=== PATIENT | male | born 1940 | race Caucasian/White ===

== ENCOUNTER 2020-02-05 08:03 | Outpatient (REF) | payer MEDICARE, OTHER, SELFPAY ==
--- NOTE | 2020-02-05 | XR_ITS ---
EXAMINATION: XR FOOT, LEFT CLINICAL INFORMATION: Pain of the first metatarsal joint. Rule out fracture/gout/arthritis. COMPARISON: None TECHNIQUE: AP, lateral, and oblique views of the left foot. FINDINGS: There is no fracture or dislocation. There is loss of the joint space at the first metatarsophalangeal joint with subchondral sclerosis and osteophyte formation. No osseous erosion. Mild narrowing with subchondral cyst formation at the second and third digit distal interphalangeal joints.. There is prominent soft tissue swelling of the forefoot. Vascular calcifications are present. Osseous spurring at the base of the fifth metatarsal. 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 Mild degenerative changes of the second and third distal interphalangeal joints.
[2020-02-05 11:58] LABS: Uric Acid 10.5 mg/dL (3.4-7.0)
[2020-02-05 12:12] LABS: Alanine Aminotransferase 20 U/L (0-40); Albumin Level 4.3 g/dL (3.5-5.0); Alkaline Phosphatase 73 U/L (39-117); Anion Gap 14 (12-20); Aspartate Amino Transferase 22 U/L (5-37); Bilirubin Total 1.3 mg/dL (0.0-1.0); Blood Urea Nitrogen 27 mg/dL (9-16); Calcium 9.1 mg/dL (8.4-10.2); Carbon Dioxide 26 mmol/L (22-29); Chloride 102 mmol/L (96-108); Cholesterol 150 mg/dL; Estimated Glomerular Filt Rate > 60; Glucose Fasting 139 mg/dL (60-99); HDL Cholesterol 52 mg/dL; LDL Cholesterol Calculated 76 mg/dl; Potassium 4.4 mmol/l (3.3-5.1); Sodium 138 mmol/L (135-145); Total Protein 7.7 g/dL (6.5-8.0); Triglycerides 111 mg/dL
[2020-02-05 12:20] LABS: Estimated Average Glucose 137 mg/dL; Hemoglobin A1c % 6.4 %
[2020-02-05 12:25] LABS: Erythrocyte Sedimentation Rate 23 MM/HR (0-15)
== END 2020-02-05 08:04 | disposition home or self-care (01) ==
LOC: HO.HMGCX 08:03
PROVIDERS: PCP Nurse Practitioner Family; Visit Provider Podiatrist
DX: M10.9 Gout, unspecified (principal); M19.90 Unspecified osteoarthritis, unspecified site; M77.42 Metatarsalgia, left foot; E11.9 Type 2 diabetes mellitus without complications
CPT/HCPCS: 36415; 73630; 80053; 80061; 83036; 84550; 85652

== ENCOUNTER 2020-02-08 08:02 | Outpatient (REF) | payer MEDICARE, OTHER, SELFPAY ==
[2020-02-08 11:37] LABS: Alanine Aminotransferase 22 U/L (0-40); Albumin Level 4.2 g/dL (3.5-5.0); Alkaline Phosphatase 73 U/L (39-117); Anion Gap 14 (12-20); Aspartate Amino Transferase 24 U/L (5-37); Bilirubin Total 0.9 mg/dL (0.0-1.0); Blood Urea Nitrogen 24 mg/dL (9-16); Calcium 9.4 mg/dL (8.4-10.2); Carbon Dioxide 27 mmol/L (22-29); Chloride 105 mmol/L (96-108); Cholesterol 139 mg/dL; Estimated Average Glucose 134 mg/dL; Estimated Glomerular Filt Rate > 60; Glucose Fasting 141 mg/dL (60-99); HDL Cholesterol 52 mg/dL; Hemoglobin A1c % 6.3 %; LDL Cholesterol Calculated 72 mg/dl; Potassium 4.5 mmol/l (3.3-5.1); Sodium 141 mmol/L (135-145); Total Protein 7.6 g/dL (6.5-8.0); Triglycerides 76 mg/dL
[2020-02-08 11:59] LABS: Thyroid Stimulating Hormone 1.25 mIU/mL (0.32-4.0)
[2020-02-08 12:05] LABS: Creatinine Urine 117.49 mg/dL; Microalbum/Creatinine Ratio Ur 103.8 ug/mg cr
== END 2020-02-08 08:03 | disposition home or self-care (01) ==
LOC: HO.HMGCLDS 08:02
PROVIDERS: PCP Nurse Practitioner Family; Visit Provider Internal Medicine Endocrinology, Diabetes & Metabolism
DX: E11.65 Type 2 diabetes mellitus with hyperglycemia (principal)
CPT/HCPCS: 80053; 80061; 82043; 83036; 84443

== ENCOUNTER 2020-12-01 07:48 | Outpatient (REF) | payer MEDICARE, OTHER, SELFPAY ==
--- NOTE | ~2020-12-01 | XR_ITS ---
EXAMINATION: XR CHEST CLINICAL INFORMATION: R19.7 - Diarrhea, unspecified COMPARISON: Chest radiographs 12/13/2018 TECHNIQUE: 2 views of the chest were obtained. FINDINGS: There has been prior median sternotomy with mediastinal clips and sternotomy wires. The heart is within normal size. The vascularity is normal. There is old scarring left lower zone similar to prior exam 2019. There is no vascular congestion or interval airspace consolidation or effusion. The posterior costophrenic sulci are well-defined. The hilar and mediastinal contours and bony structures are stable. No free air beneath the diaphragms. XR/XR chest 2V IMPRESSION: Postsurgical changes. Old scarring left lower zone. No acute intrathoracic disease.
[2020-12-01 11:35] LABS: Basophils Percent Auto 0.4 % (0-2); Eosinophils Absolute Auto 0.3 X10*3/uL (0.0-0.4); Hematocrit 40.7 % (42-52); Hemoglobin 13.4 g/dl (14.0-18.0); Imm Gran Abs Auto 0.03 X10*3/uL (0.00-0.03); Imm Gran Pct Auto 0.4 % (0.0-0.4); Lymphocytes Absolute Auto 1.2 X10*3/uL (1.2-4.9); Lymphocytes Percent Auto 15.1 % (20-40); MANUAL DIFF FLAG SCAN; Mean Corpuscular HGB Conc 32.9 g/dl (31.0-36.0); Mean Corpuscular Hemoglobin 33.1 pg (27.0-33.0); Mean Corpuscular Volume 100.5 fL (80-98); Mean Platelet Volume 9.8 fL (9.4-12.4); Monocytes Absolute Auto 1.6 X10*3/uL (0.1-1.2); Monocytes Percent Auto 19.6 % (2-11); Neutrophils Percent Auto 60.5 % (45-73); Platelet Count 226 X10*3/uL (160-400); Red Blood Count 4.05 X10*6/uL (4.60-5.80); Red Cell Distribution Width 12.3 % (11.0-16.0); SCAN SMEAR FLAG 1; White Blood Count 8.2 X10*3/uL (4.8-10.8)
[2020-12-01 11:55] LABS: Alanine Aminotransferase 31 U/L (0-40); Albumin Level 4.2 g/dL (3.5-5.0); Alkaline Phosphatase 105 U/L (39-117); Anion Gap 16 (12-20); Aspartate Amino Transferase 33 U/L (5-37); Bilirubin Total 1.3 mg/dL (0.0-1.0); Blood Urea Nitrogen 42 mg/dL (9-16); C Reactive Protein 4.16 mg/dL (< or = 0.50); Calcium 9.4 mg/dL (8.4-10.2); Carbon Dioxide 23 mmol/L (22-29); Chloride 104 mmol/L (96-108); Cholesterol 134 mg/dL; Estimated Glomerular Filt Rate 43; Glucose Fasting 120 mg/dL (60-99); HDL Cholesterol 41 mg/dL; LDL Cholesterol Calculated 76 mg/dl; Potassium 4.9 mmol/L (3.3-5.1); Sodium 138 mmol/L (135-145); Total Protein 7.9 g/dL (6.5-8.0); Triglycerides 85 mg/dL
[2020-12-01 11:58] LABS: Glucose Urine UA NEG (NEG); Leukocyte Esterase Urine NEG (NEG); Nitrite Urine NEG (NEG); PH 5.5 (5.0-8.0); Specific Gravity - Urine 1.025 (1.005-1.025); Urine Blood NEG (NEG); Urine Ketones NEG (NEG); Urine Protein TRACE MG/DL (NEG-TRACE)
[2020-12-01 12:04] LABS: Appearance Urine CLEAR; Color Urine YELLOW
[2020-12-01 12:06] LABS: HBsAGNum1 0.17 S/CO (0.00-0.99); HIV AB/AG Nonreactive (Nonreactive); Hepatitis B Core Antibody Nonreactive (Nonreactive); Hepatitis B Surface Antigen Negative (Negative); ~HepC Num1 0.09 S/CO (0.00-0.79); ~Hepatitis C Antibody Nonreactive (Nonreactive)
[2020-12-01 12:09] LABS: SLIDE REVIEW VERIFIED
[2020-12-01 12:17] LABS: Erythrocyte Sedimentation Rate 64 MM/HR (0-15); TSH reflex Free T4 1.01 uIU/mL (0.32-4.0)
[2020-12-01 12:24] LABS: HBS Num1 0.45 mIU/mL (0-7.99); ~Hepatitis B Surface Antibody NONREACTIVE (Nonreactive)
[2020-12-02 04:36] LABS: Hepatitis A Antibody IgM 0.47 Index (0-0.79); ~Hepatitis A Antibody IgM Nonreactive (Nonreactive)
[2020-12-02 05:35] LABS: CA-125 17 U/mL (<35)
== END 2020-12-01 07:49 | disposition home or self-care (01) ==
LOC: HO.HMGCX 07:48
PROVIDERS: PCP Nurse Practitioner Family; Visit Provider Nurse Practitioner Family
DX: R63.4 Abnormal weight loss (principal); R19.7 Diarrhea, unspecified; I10 Essential (primary) hypertension; Z12.5 Encounter for screening for malignant neoplasm of prostate
CPT/HCPCS: 36415; 71046; 80053; 80061; 81003; 84153; 84443; 85025; 85652; 86140; 86304; 86704; 86706; 86709; 86803; 87340; 87389

== ENCOUNTER 2020-12-06 09:33 | Outpatient (REF) | payer MEDICARE, OTHER, SELFPAY ==
[2020-12-06 11:34] LABS: Glucose Urine UA NEG (NEG); Leukocyte Esterase Urine NEG (NEG); Nitrite Urine NEG (NEG); PH 5.5 (5.0-8.0); Specific Gravity - Urine 1.025 (1.005-1.025); UACC Culture Trigger NO; Urine Blood NEG (NEG); Urine Ketones 5 MG/DL (NEG); Urine Protein 1+ MG/DL (NEG-TRACE)
[2020-12-06 11:37] LABS: Appearance Urine CLEAR; Color Urine YELLOW
[2020-12-06 11:46] LABS: RBC Urine 0 /HPF (0); Squamous Epithelial Cell Urine TRACE /LPF; WBC Urine 0 /HPF (0-4)
[2020-12-06 12:05] LABS: Alanine Aminotransferase 31 U/L (0-40); Alkaline Phosphatase 98 U/L (39-117); Anion Gap 18 (12-20); Aspartate Amino Transferase 32 U/L (5-37); Bilirubin Total 1.1 mg/dL (0.0-1.0); Blood Urea Nitrogen 33 mg/dL (9-16); Calcium 9.3 mg/dL (8.4-10.2); Carbon Dioxide 22 mmol/L (22-29); Chloride 104 mmol/L (96-108); Estimated Glomerular Filt Rate 51; Glucose Random 171 mg/dL (60-115); Iron 42 mcg/dL (45-160); Potassium 4.6 mmol/L (3.3-5.1); Sodium 139 mmol/L (135-145); Total Protein 7.6 g/dL (6.5-8.0)
[2020-12-06 12:16] LABS: Percent Iron Saturation 16 % (15-50); Total Iron Binding Capacity 260 mcg/dL (228-428); Unsaturated Iron Binding 218 ug/dL
[2020-12-06 12:28] LABS: Ferritin 640 ng/mL (20-250)
[2020-12-06 13:11] LABS: Folate > 20.0 ng/mL (> or = 4.0); Vitamin B12 929 pg/mL (200-900)
== END 2020-12-06 09:34 | disposition home or self-care (01) ==
LOC: HO.HMGCLDS 09:33
PROVIDERS: PCP Nurse Practitioner Family; Visit Provider Nurse Practitioner Family
DX: Z12.5 Encounter for screening for malignant neoplasm of prostate (principal); R19.8 Other specified symptoms and signs involving the digestive system and abdomen; D64.9 Anemia, unspecified
CPT/HCPCS: 36415; 80053; 81001; 82607; 82728; 82746; 83540; 84153

== ENCOUNTER 2020-12-06 09:53 | Outpatient (REF) | payer MEDICARE, OTHER, SELFPAY ==
[2020-12-06 14:03] LABS: Leukocytes Stool Qualitative NEGATIVE (NEGATIVE)
== END 2020-12-06 09:54 | disposition home or self-care (01) ==
LOC: HO.HMGCLNP 09:53
PROVIDERS: Visit Provider Nurse Practitioner Family
DX: R19.7 Diarrhea, unspecified (principal); D64.9 Anemia, unspecified; Z12.5 Encounter for screening for malignant neoplasm of prostate
CPT/HCPCS: 80053; 82607; 82728; 83540; 84153; 87045; 87046; 87177; 87209; 87329; 87338; 89055

== ENCOUNTER 2020-12-14 12:52 | Outpatient (REF) | payer MEDICARE, OTHER, SELFPAY ==
--- NOTE | ~2020-12-14 | CT_ITS ---
EXAMINATION: CT ABDOMEN AND PELVIS WITH CONTRAST CLINICAL INFORMATION: Anemia. COMPARISON: None TECHNIQUE: Multidetector volumetric images were obtained from the superior aspect of the liver through the pubic symphysis following administration 85 mL of Omnipaque 350 intravenous contrast. Sagittal and coronal reformatted images were obtained on the technologist's workstation. Oral contrast: No This CT examination was performed using dose optimization techniques as appropriate, variously including the following: *Automated exposure control *Adjustment of mA and/or kV according to patient size (this includes techniques or standardized protocols for targeted exams where dose is matched to indication/reason for exam; i.e. extremities or head) *Use of iterative reconstruction technique DLP: 572 mGy-cm FINDINGS: LUNG BASES: There is minimal atelectatic changes in the left lung base with mild posterior pleural thickening LIVER, GALLBLADDER, AND BILIARY TREE: The liver is normal in size, shape, and attenuation. No focal hepatic lesion or biliary ductal dilatation is present. There are multiple radiopaque gallstones without wall thickening. PANCREAS: The pancreas is fatty infiltrated. SPLEEN: Unremarkable. ADRENAL GLANDS: Unremarkable. KIDNEYS AND URETERS: The kidneys are normal in size, shape, and attenuation. No hydronephrosis, hydroureter, or calculi seen. No perinephric stranding. BLADDER: The bladder is nondistended with mild bladder wall thickening. GASTROINTESTINAL TRACT: There is scattered stool, oral contrast and gas seen throughout the colon without any significant distention. The small bowel loops are normal caliber. The stomach is nondistended. No free fluid or free air seen. ABDOMINAL WALL: No significant hernia is appreciated. LYMPH NODES: Normal. VASCULAR: Unremarkable. PELVIC VISCERA: The prostate gland is mildly enlarged. OSSEOUS STRUCTURES: There are degenerative disc changes with vacuum disc phenomena and spondylosis from L2-L3 through L5-S1 disc levels. No lytic process seen. CT/CT abdomen pelvis w con IMPRESSION: No acute intra-abdominal process seen Nondistended urinary bladder with mild bladder wall thickening the prostate gland size is normal Cholelithiasis.
[2020-12-14] MEDS: iohexoL 350 MG/ML 100 ML INFUS..BTL IV (14:57)
[2020-12-14] MEDS: Barium Sulfate Oral (Berry) 450 ML ORAL.SUSP 900 ML PO (14:58)
== END 2020-12-14 12:53 | disposition home or self-care (01) ==
LOC: HO.CT 12:52
PROVIDERS: Visit Provider Nurse Practitioner Family
DX: R19.7 Diarrhea, unspecified (principal); R70.0 Elevated erythrocyte sedimentation rate; R63.4 Abnormal weight loss; D64.9 Anemia, unspecified; R79.82 Elevated C-reactive protein (CRP)
CPT/HCPCS: 74177; Q9967

== ENCOUNTER 2021-01-04 07:47 | Outpatient (REF) | payer MEDICARE, OTHER, SELFPAY ==
[2021-01-04 11:19] LABS: Appearance Urine CLEAR; Color Urine YELLOW; Glucose Urine UA NEG (NEG); Leukocyte Esterase Urine NEG (NEG); Nitrite Urine NEG (NEG); Urine Blood NEG (NEG); Urine Ketones NEG (NEG); Urine Protein NEG (NEG-TRACE)
[2021-01-04 11:29] LABS: OBS Int Ctl Valid YES; OBS1 NEGATIVE (NEGATIVE)
[2021-01-04 12:31] LABS: CDiff Gene PCR NEGATIVE (Negative)
== END 2021-01-04 07:48 | disposition home or self-care (01) ==
LOC: HO.HMGCLNP 07:47
PROVIDERS: Visit Provider Nurse Practitioner Family
DX: R19.7 Diarrhea, unspecified (principal); R63.4 Abnormal weight loss; Z12.11 Encounter for screening for malignant neoplasm of colon
CPT/HCPCS: 81003; 82272; 87493

== ENCOUNTER 2021-01-09 12:32 | Outpatient (REF) | payer MEDICARE, OTHER, SELFPAY ==
[2021-01-09 14:34] LABS: FIT Int Ctl YES; FIT1 NEGATIVE (NEGATIVE); FIT2 NEGATIVE (NEGATIVE)
== END 2021-01-09 12:33 | disposition home or self-care (01) ==
LOC: HO.LNP 12:32
PROVIDERS: Visit Provider Nurse Practitioner Family
DX: Z12.11 Encounter for screening for malignant neoplasm of colon (principal)
CPT/HCPCS: 82274

== ENCOUNTER 2021-06-08 07:51 | Outpatient (REF) | payer MEDICARE, OTHER, SELFPAY ==
[2021-06-08 11:50] LABS: Alanine Aminotransferase 24 U/L (0-40); Albumin Level 4.2 g/dL (3.5-5.0); Alkaline Phosphatase 80 U/L (39-117); Anion Gap 13 (12-20); Aspartate Amino Transferase 24 U/L (5-37); Blood Urea Nitrogen 29 mg/dL (9-16); Calcium 9.6 mg/dL (8.4-10.2); Carbon Dioxide 27 mmol/L (22-29); Chloride 107 mmol/L (96-108); Cholesterol 153 mg/dL; Estimated Glomerular Filt Rate 56; Glucose Fasting 122 mg/dL (60-99); HDL Cholesterol 62 mg/dL; LDL Cholesterol Calculated 79 mg/dl; Potassium 5.4 mmol/L (3.3-5.1); Sodium 142 mmol/L (135-145); Total Protein 7.6 g/dL (6.5-8.0); Triglycerides 60 mg/dL
[2021-06-08 11:58] LABS: Appearance Urine CLEAR; Color Urine YELLOW; Glucose Urine UA NEG (NEG); Leukocyte Esterase Urine NEG (NEG); Nitrite Urine NEG (NEG); PH 5.5 (5.0-8.0); UACC Culture Trigger NO; Urine Blood NEG (NEG); Urine Ketones NEG (NEG); Urine Protein 1+ MG/DL (NEG-TRACE)
[2021-06-08 12:11] LABS: TSH reflex Free T4 1.62 uIU/mL (0.32-4.0)
[2021-06-08 12:19] LABS: RBC Urine 0 /HPF (0); Squamous Epithelial Cell Urine TRACE /LPF; WBC Urine 0-2 /HPF (0-4)
== END 2021-06-08 07:52 | disposition home or self-care (01) ==
LOC: HO.HMGCLDS 07:51
PROVIDERS: PCP Nurse Practitioner Family; Visit Provider Nurse Practitioner Family
DX: E78.5 Hyperlipidemia, unspecified (principal)
CPT/HCPCS: 36415; 80053; 80061; 81001; 81003; 84443

== ENCOUNTER 2021-07-14 10:07 | Outpatient (REF) | payer MEDICARE, OTHER, SELFPAY ==
[2021-07-14 12:31] LABS: Alanine Aminotransferase 30 U/L (0-40); Albumin Level 4.1 g/dL (3.5-5.0); Alkaline Phosphatase 96 U/L (39-117); Anion Gap 13 (12-20); Aspartate Amino Transferase 25 U/L (5-37); Bilirubin Total 1.2 mg/dL (0.0-1.0); Blood Urea Nitrogen 28 mg/dL (9-16); Calcium 9.3 mg/dL (8.4-10.2); Carbon Dioxide 28 mmol/L (22-29); Chloride 104 mmol/L (96-108); Estimated Glomerular Filt Rate 60; Glucose Random 215 mg/dL (60-115); Potassium 5.1 mmol/L (3.3-5.1); Sodium 140 mmol/L (135-145); Total Protein 7.5 g/dL (6.5-8.0)
== END 2021-07-14 10:08 | disposition home or self-care (01) ==
LOC: HO.HMGCLDS 10:07
PROVIDERS: Visit Provider Nurse Practitioner Family
DX: E87.5 Hyperkalemia (principal)
CPT/HCPCS: 36415; 80053

== ENCOUNTER 2021-11-09 07:54 | Outpatient (REF) | payer MEDICARE, OTHER, SELFPAY ==
[2021-11-09 11:08] LABS: MANUAL DIFF FLAG NO
[2021-11-09 11:12] LABS: Basophils Percent Auto 0.4 % (0-2); Eosinophils Absolute Auto 0.2 X10*3/uL (0.0-0.4); Eosinophils Percent Auto 2.8 % (0-4); Hematocrit 39.8 % (42.0-52.0); Hemoglobin 12.8 g/dl (14.0-18.0); Imm Gran Abs Auto 0.02 X10*3/uL (0.00-0.03); Imm Gran Pct Auto 0.3 % (0.0-0.4); Lymphocytes Absolute Auto 1.8 X10*3/uL (1.2-4.9); Lymphocytes Percent Auto 24.9 % (20-40); Mean Corpuscular HGB Conc 32.2 g/dl (31.0-36.0); Mean Corpuscular Hemoglobin 32.3 pg (27.0-33.0); Mean Corpuscular Volume 100.5 fL (80.0-98.0); Mean Platelet Volume 10.1 fL (9.4-12.4); Monocytes Absolute Auto 0.9 X10*3/uL (0.1-1.2); Monocytes Percent Auto 12.3 % (2-11); Neutrophils Absolute Auto 4.3 x10*3/uL (2.0-8.3); Neutrophils Percent Auto 59.3 % (45-73); Platelet Count 227 X10*3/uL (160-400); Red Blood Count 3.96 X10*6/uL (4.60-5.80); Red Cell Distribution Width 12.8 % (11.0-16.0); White Blood Count 7.2 X10*3/uL (4.8-10.8)
[2021-11-09 11:13] LABS: Appearance Urine CLEAR; Color Urine YELLOW; Glucose Urine UA NEG (NEG); Leukocyte Esterase Urine NEG (NEG); Nitrite Urine NEG (NEG); PH 5.5 (5.0-8.0); Urine Blood NEG (NEG); Urine Ketones NEG (NEG); Urine Protein TRACE MG/DL (NEG-TRACE)
[2021-11-09 11:24] LABS: Alanine Aminotransferase 17 U/L (0-40); Albumin Level 4.2 g/dL (3.5-5.0); Alkaline Phosphatase 84 U/L (39-117); Anion Gap 13 (12-20); Aspartate Amino Transferase 22 U/L (5-37); Bilirubin Total 1.1 mg/dL (0.0-1.0); Blood Urea Nitrogen 30 mg/dL (9-16); Calcium 9.5 mg/dL (8.4-10.2); Carbon Dioxide 27 mmol/L (22-29); Chloride 105 mmol/L (96-108); Cholesterol 133 mg/dL; Estimated Glomerular Filt Rate 56; Glucose Fasting 121 mg/dL (60-99); HDL Cholesterol 48 mg/dL; LDL Cholesterol Calculated 71 mg/dl; Potassium 4.9 mmol/L (3.3-5.1); Sodium 140 mmol/L (135-145); Total Protein 7.6 g/dL (6.5-8.0); Triglycerides 74 mg/dL
[2021-11-09 11:46] LABS: TSH reflex Free T4 1.43 uIU/mL (0.32-4.0)
== END 2021-11-09 07:55 | disposition home or self-care (01) ==
LOC: HO.HMGCLDS 07:54
PROVIDERS: PCP Nurse Practitioner Family; Visit Provider Nurse Practitioner Family
DX: R68.89 Other general symptoms and signs (principal)
CPT/HCPCS: 36415; 80053; 80061; 81003; 84443; 85025

== ENCOUNTER 2022-03-01 07:56 | Outpatient (REF) | payer MEDICARE, OTHER, SELFPAY ==
[2022-03-01 11:33] LABS: Estimated Average Glucose 117 mg/dL; Hemoglobin A1c % 5.7 %
[2022-03-01 11:52] LABS: Alanine Aminotransferase 16 U/L (0-40); Albumin Level 4.1 g/dL (3.5-5.0); Alkaline Phosphatase 86 U/L (39-117); Anion Gap 15 (12-20); Aspartate Amino Transferase 20 U/L (5-37); Bilirubin Total 1.3 mg/dL (0.0-1.0); Blood Urea Nitrogen 23 mg/dL (9-16); Calcium 9.3 mg/dL (8.4-10.2); Carbon Dioxide 25 mmol/L (22-29); Chloride 106 mmol/L (96-108); Cholesterol 140 mg/dL; Estimated Glomerular Filt Rate > 60; Glucose Fasting 111 mg/dL (60-99); HDL Cholesterol 56 mg/dL; LDL Cholesterol Calculated 72 mg/dl; Potassium 4.2 mmol/L (3.3-5.1); Sodium 142 mmol/L (135-145); Total Protein 7.5 g/dL (6.5-8.0); Triglycerides 62 mg/dL
[2022-03-01 12:07] LABS: Creatinine Urine 58.78 mg/dL; Microalbum/Creatinine Ratio Ur 314.7 ug/mg cr; Protein/Creatinine Ratio, Ur 0.48 (<0.2); Total Protein Urine Random 28 mg/dL (<12)
== END 2022-03-01 07:57 | disposition home or self-care (01) ==
LOC: HO.HMGCLDS 07:56
PROVIDERS: Absent Provider Internal Medicine Endocrinology, Diabetes & Metabolism; PCP Nurse Practitioner Family; Visit Provider Nurse Practitioner Family
DX: E11.49 Type 2 diabetes mellitus with other diabetic neurological complication (principal)
CPT/HCPCS: 36415; 80053; 80061; 82043; 83036; 84156

== ENCOUNTER 2022-03-08 13:36 | Outpatient (REF) | payer MEDICARE, OTHER, SELFPAY ==
--- NOTE | ~2022-03-08 | XR_ITS ---
EXAMINATION: XR SHOULDER, LEFT CLINICAL INFORMATION: Pain COMPARISON: None TECHNIQUE: AP external rotation, Grashey, scapular Y, and axillary views of the left shoulder. FINDINGS: There is loss of left AC joint and glenohumeral joint space with mild periarticular spurring. No visible acute fracture, dislocation or loose body seen. The soft tissues are normal. XR/XR shoulder LT min 2V IMPRESSION: Degenerative arthritic changes left A.C. and glenohumeral joint. No visible acute fracture or dislocation seen.
== END 2022-03-08 13:37 | disposition home or self-care (01) ==
LOC: HO.HMGCX 13:36
PROVIDERS: PCP Nurse Practitioner Family; Visit Provider Nurse Practitioner Family
DX: M25.512 Pain in left shoulder (principal)
CPT/HCPCS: 73030

== ENCOUNTER 2022-04-12 11:00 | Outpatient (RCR) | payer MEDICARE, OTHER, SELFPAY ==
[2022-03-26 10:54] VITALS: BP 136/70; PULSE 78; O2SAT 96
--- NOTE | 2022-03-27 07:45 | MHC.PT.EP ---
[facility] [place] Office [place] Office [place] Office [address] Karen Chacko [address] [phone] F: [phone] F: [phone] F: [phone] F: [phone] Physical Therapy Plan of Care Date of Evaluation: Date of Surgery: Diagnosis: PT eval and treat, Pain in L shoulder date of script 03/21/22 signed by Pradeep Damian NP-CARLOS Assessment: Pt is a pleasant, RHD 81 y/o male with PMH significant for Afib (was recently started on Xarelto pt expressing he had severe back pain as side effect and is currently not taking any form of blood thinner but is scheduled to see his bronzer this week to address). Pt also reports hx [place] x 2 and CABG in 2005. Pt expressing recent loss of son due to CA and history of his passing with report of grandson and his recently moving in with him two weeks ago. Pt lives in single level and reports I with all aspects ADLS/IADLS. He denies difficulty with dressing/lifting but expresses biggest impairment is his ability to sleep and lie on his L shoulder. Pt would benefit from attending skilled PT services at a frequency of 1-2x/week to address impairments, implement HEP to improve postural/periscap support, and improve tolerance for sleep positions. Pt has expressed history of receiving cortisone injections in both of his shoulders in the past (something his prior PCP Dr. Reed would do for him). He has not consulted with orthopedics nor has he had any recent shoulder injections in the past few years. Pt had xrays following injury/fall on 03/08/22 (-) acute fracture. He exhibits painful arc, pain at night and decreased tolerance for SL. Functionally he is doing well however he expresses severe sleep disturbance secondary to sx. RTC compromise is a potential given history of fall, presence of night pain, and exam/sx presentation. Post evaluation pt was educated re: goals, findings, and benefit in using ice to ease shoulder sx. He was also shown positional adjustments to trial in his sleeping positions and was educated in the trial of ice. He reports he attempted use of heat which irritated his sx. He was advised to refrain from use of heat on his shoulder. Frequency and Duration: The patient will be seen 1-2x/week Short Term Goals: 1. Improve severity of L shoulder pain by 25%. 2. Increase strength of scapular retractors. 3. Pt will increase strength L shoulder ER to 4/5. 4. Pt will increase strength L shoulder ext to 4+/5. [employer] Goals: 1. Pt will sleep through the night >2 disturbances related to L shoulder pain. 2. Pt will demonstrate I HEP with good lifting mechanics. 3. Pt will demonstrate resolution of 75% of L shoulder pain. 4. Pt will demonstrate good postural awareness. Treatment Plan: Modalities to reduce pain, spasms and effusion. Manual therapy to restore motion and function. Therapeutic exercise to improve strength and flexibility. Neuromuscular re-education for posture and balance. Therapeutic activities to return to functional activities of daily living. Electronically signed by: Rosalind Irby, PT, DPT Please sign and return to therapist. Thank you for your referral.
--- NOTE | 2022-04-06 11:31 | MHC.PT.OD ---
[facility] [place] Office [place] Office [place] Office [address] Karen Chacko [address] [phone] F: [phone] F: [phone] F: [phone] F: [phone] Physical Therapy Daily Note Diagnosis: PT eval and treat, Pain in L shoulder date of script 03/21/22 signed by CARIN Smyth Date of Surgery: Date of Evaluation: 03/26/22 Date of Treatment: 04/06/22 Treatments to Date: Cancellations to Date: No Shows to Date: Authorized Visits: 3 Insurance End Date: Precautions/ Contraindications:cardiac, Afib, Subjective: This therapy doesn't seem to be helping. I got three, four hours of sleep. Its really bothersome at night. Pain Score and Location: Objective Flowsheet: Tests & Measures see eval Exercises Pendulums, education re: support for use of pillow under arm for sleep/supine/SL, AAROM cane flexion in supine also shown AAROM flexion with aide of opposite arm x 2 sets 5R of each x 10 sec hold, seated rows with GTB x 3 sets 10R to neutral with cues for posture, SL ER with towel roll with no added weight x 2 sets 10R. Discussed plan and goal of following up with PCP to discuss benefit in referral to ortho Taping for shoulder stability with three I strips (anterior, lateral, posterior shoulder) with education re: application/removal, indications fo use, goals Modalities Reviewed benefit for home Assessment: 04/06/22:Pt has attended 3 sessions of PT to date since start of care on 03/26/22. Pt expressing ongoing, severe L shoulder pain at night. He expresses lateral shoulder pain radiating to the deltoid region. He has expressed a history of shoulder injections done a couple of years ago by PCP Dr. Reed with significant relief of his symptoms. He reports he has not seen an orthopedist for his L shoulder. Pt has been initiated in AAROM of the L shoulder, gentle scapular exercises, and postural support with good tolerance. Pt denies questions/difficulties with HEP given to date. At this time due to pt severity level of pain, therapist feels referral a orthopedics may be warranted to discuss potential about obtaining a cortisone injection to ease his sx and aide in ability to sleep. Pt expresses good functional use of his shoulder despite severe pain at night. He has been educated in the benefit of using ice and performing AAROM to maintain flexibility. has been encouraged to continue PT at this time in effort to showcase improvement in sx. 04/02/22 Pt demonstrated good tolerance for introduction of AAROM flexion in supine, AAROM scaption, and postural therex. Pt given GTB for home program with written HEP sheets. Pt expressing improvement in L shoulder pain post session. AAROM flexion ~150 degrees. 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 Pt also reports hx [place] x 2 and CABG in 2005. Pt expressing recent loss of son due to CA and history of his passing with report of grandson and his recently moving in with him two weeks ago. Pt lives in single level and reports I with all aspects ADLS/IADLS. He denies difficulty with dressing/lifting but expresses biggest impairment is his ability to sleep and lie on his L shoulder. Pt would benefit from attending skilled PT services at a frequency of 1-2x/week to address impairments, implement HEP to improve postural/periscap support, and improve tolerance for sleep positions. Pt has expressed history of receiving cortisone injections in both of his shoulders in the past (something his prior PCP Dr. Reed would do for him). He has not consulted with orthopedics nor has he had any recent shoulder injections in the past few years. Pt had xrays following injury/fall on 03/08/22 (-) acute fracture. He exhibits painful arc, pain at night and decreased tolerance for SL. Functionally he is doing well however he expresses severe sleep disturbance secondary to sx. RTC compromise is a potential given history of fall, presence of night pain, and exam/sx presentation. Post evaluation pt was educated re: goals, findings, and benefit in using ice to ease shoulder sx. He was also shown positional adjustments to trial in his sleeping positions and was educated in the trial of ice. He reports he attempted use of heat which irritated his sx. He was advised to refrain from use of heat on his shoulder. PT Plan: Recommending referral to ortho ? concern for RTC compromise due to severe night pain sx.. ? benefit in shoulder injection Short Term Goals: 1. Improve severity of L shoulder pain by 25%. 2. Increase strength of scapular retractors. 3. Pt will increase strength L shoulder ER to 4/5. 4. Pt will increase strength L shoulder ext to 4+/5. [employer] Goals: 1. Pt will sleep through the night >2 disturbances related to L shoulder pain. 2. Pt will demonstrate I HEP with good lifting mechanics. 3. Pt will demonstrate resolution of 75% of L shoulder pain. 4. Pt will demonstrate good postural awareness. Electronically signed by: Rosalind Irby, PT, DPT
== END 2022-06-14 08:04 | disposition home or self-care (01) ==
LOC: HO.PTWFD 11:00
PROVIDERS: PCP Nurse Practitioner Family; Visit Provider Nurse Practitioner Family
DX: M25.512 Pain in left shoulder (principal)
CPT/HCPCS: 97110; 97140; 97162; 97535

== ENCOUNTER → 2022-05-07 12:32 | Outpatient (BNVA) | payer MEDICARE, OTHER, SELFPAY | PROVIDERS: Visit Provider Orthopaedic Surgery | DX: M67.912 Unspecified disorder of synovium and tendon, left shoulder (principal) | CPT/HCPCS: 20610; 99202; J1100 ==

== ENCOUNTER 2022-09-13 07:57 | Outpatient (REF) | payer MEDICARE, OTHER, SELFPAY ==
[2022-09-13 11:20] LABS: MANUAL DIFF FLAG NO
[2022-09-13 11:25] LABS: Appearance Urine Clear; Color Urine Yellow; Glucose Urine UA Negative (Negative); Leukocyte Esterase Urine Negative (Negative); Nitrite Urine Negative (Negative); Specific Gravity - Urine 1.015 (1.005-1.025); UMIC TRIGGER UACC YES; Urine Blood Negative (Negative); Urine Ketones Negative (Negative); Urine Protein 30 (1+) mg/dL (Neg-Trace)
[2022-09-13 11:32] LABS: Bacteria Urine None Seen (None Seen); Hyaline Casts Urine 0-2 /LPF (0-2); RBC Urine 0-2 /HPF (0-2); Squamous Epithelial Cell Urine 0-2 /HPF (0-2); WBC Urine 0-5 /HPF (0-5)
[2022-09-13 11:34] LABS: Basophils Percent Auto 0.4 % (0-2); Eosinophils Absolute Auto 0.3 X10*3/uL (0.0-0.4); Eosinophils Percent Auto 3.7 % (0-4); Hematocrit 38.7 % (42.0-52.0); Hemoglobin 12.5 g/dl (14.0-18.0); Imm Gran Abs Auto 0.02 X10*3/uL (0.00-0.03); Imm Gran Pct Auto 0.3 % (0.0-0.4); Lymphocytes Absolute Auto 1.6 X10*3/uL (1.2-4.9); Lymphocytes Percent Auto 22.5 % (20-40); Mean Corpuscular HGB Conc 32.3 g/dl (31.0-36.0); Mean Corpuscular Hemoglobin 32.7 pg (27.0-33.0); Mean Corpuscular Volume 101.3 fL (80.0-98.0); Monocytes Percent Auto 14.9 % (2-11); Neutrophils Absolute Auto 4.1 x10*3/uL (2.0-8.3); Neutrophils Percent Auto 58.2 % (45-73); Platelet Count 192 X10*3/uL (160-400); Red Blood Count 3.82 X10*6/uL (4.60-5.80); Red Cell Distribution Width 13.4 % (11.0-16.0)
[2022-09-13 11:45] LABS: Alanine Aminotransferase 17 U/L (0-40); Alkaline Phosphatase 74 U/L (39-117); Anion Gap 14 (12-20); Aspartate Amino Transferase 21 U/L (5-37); Bilirubin Total 1.4 mg/dL (0.0-1.0); Blood Urea Nitrogen 32 mg/dL (9-16); Calcium 9.3 mg/dL (8.4-10.2); Carbon Dioxide 25 mmol/L (22-29); Chloride 108 mmol/L (96-108); Cholesterol 134 mg/dL; Estimated Glomerular Filt Rate 54; Glucose Fasting 124 mg/dL (60-99); HDL Cholesterol 56 mg/dL; LDL Cholesterol Calculated 67 mg/dl; Potassium 4.5 mmol/L (3.3-5.1); Sodium 142 mmol/L (135-145); Total Protein 7.4 g/dL (6.5-8.0); Triglycerides 58 mg/dL
[2022-09-13 12:08] LABS: TSH reflex Free T4 1.98 uIU/mL (0.32-4.0)
== END 2022-09-13 07:58 | disposition home or self-care (01) ==
LOC: HO.HMGCLDS 07:57
PROVIDERS: PCP Nurse Practitioner Family; Visit Provider Nurse Practitioner Family
DX: E78.5 Hyperlipidemia, unspecified (principal); Z12.5 Encounter for screening for malignant neoplasm of prostate
CPT/HCPCS: 36415; 80053; 80061; 81001; 84153; 84443; 85025

== ENCOUNTER 2022-12-11 14:01 | Outpatient (AMB) | payer MEDICARE, OTHER, SELFPAY ==
--- NOTE | 2022-12-11 14:14 | AM.OFFWIN_ITS ---
Intake Vital Signs 12/11/22 14:16 Height 5 ft 10 in Weight 182 lb 4 oz BMI 26.1 BP 120/50 L Blood Pressure Location Lt brachial Position Sitting Pulse 68 Pulse Source Pulse Oximeter Temp 97 F Temp Source Temporal Artery Scan Pulse Oximetry (%) 95 Oxygen Delivery Method Room Air Intake Visit Reasons: EP, Right foot pain Intake Note: Pt is here c/o possible GOUT. Pt states his whole right foot is in pain all the time but hurts the most in the morning. Pt currently taking Tylenol. Patient Tobacco Use Status: Former Tobacco user Quit Date: 1985 Allergies levofloxacin [From LEVAQUIN] Allergy (Intermediate, Verified 12/11/22 14:44) INSOMNIA indomethacin [From Indocin] Allergy (Mild, Verified 12/11/22 14:44) SEVERE HEADACHE ketorolac [From Toradol] Allergy (Mild, Verified 12/11/22 14:44) HALLUCINATION, hallucinations Medication List - Last Reconciled 12/11/22 by Joseph Bejarano MD aspirin 81 mg PO DAILY atorvastatin 40 mg PO DAILY blood sugar diagnostic tid folic acid 0.4 mg PO DAILY garlic PO DAILY hydrochlorothiazide 25 mg PO DAILY lisinopril 20 mg PO DAILY 90 days [marijuana chewables PO] metoprolol succinate ER 200 mg PO DAILY multivitamin (Daily Multi-Vitamin tablet) 1 tab PO DAILY omega-3 fatty acids (Fish Oil Concentrate) 1,000 mg PO DAILY tamsulosin (Flomax) 0.8 mg (2 x 0.4 mg) PO DAILY 90 days Do you need a note to return to daycare/school/sports/work: No HPI EP, Right foot pain HPI Details 82-year-old male presents to the office for a sick visit. Patient is complaining of right foot pain in the past week. Patient admits to drinking a few beers this week and believes his gout has flared up. He is having difficul ty bearing weight on the right foot. [facility] Medical History Arthritis Heart attack Surgical History History of rectal fissure S/P CABG x 4 Family History Father CAD (coronary artery disease) Unknown family medical history Mother Unknown family medical history Son No problems noted. Son No problems noted. Daughter No problems noted. Social History Housing: House Alcohol intake: former Patient Tobacco Use Status: Former Tobacco user Quit Date: 1985 e-Cigarette/Vaping Use: Never Used Current occupational status: retired Cognitive needs: No Hearing needs: No Vision needs: No Physical Exam Vital Signs: Last Vital Signs Temp 97 F 12/11/22 14:16 Pulse 68 12/11/22 14:16 BP 120/50 L 12/11/22 14:16 Pulse Ox 95 12/11/22 14:16 Oxygen Delivery Method Room Air 12/11/22 14:16 BMI result Body Mass Index 26.1 Const General: cooperative and healthy appearing Nutritional Appearance: well nourished Orientation/consciousness: patient oriented x3 Limitations: no limitations HEENT Head: Yes normal to inspection Eyes General: appearance normal, both eyes and all related structures Neck Neck: Yes normal visual inspection Chest Chest palpation & inspection: normal palpation of entire chest wall Resp Effort & Inspection: normal respiratory effort Neuro General: patient oriented x3 Extrem Other: Right lower extremity: Below-knee 2+ edema, pitting edema over the dorsum of the foot. Pain on palpation on the heads of the metatarsals. Assessment & Plan Assessment & Plan (1) Gout: Code(s): M10.9 - Gout, unspecified Plan: X-ray images were personally verified by me. Anti-inflammatories called in. If symptoms does not improve to follow-up here. Orders: Orders XR foot RT min 3V Today M10.9 - Gout, unspecified Medications: New meloxicam 15 mg PO DAILY 14 tabs 0RF Coding Level of Care Code Est Pt Level 4 (33155) Diagnoses Gout M10.9
[2022-12-11 14:16] VITALS: BP 120/50; PULSE 68; TEMP 36.1; O2SAT 95; BMI 26.1
== END 2022-12-11 15:18 | disposition home or self-care (01) ==
PROVIDERS: PCP Nurse Practitioner Family; Visit Provider Internal Medicine
DX: M10.9 Gout, unspecified (principal)
CPT/HCPCS: 99214

== ENCOUNTER 2022-12-11 14:47 | Outpatient (REF) | payer MEDICARE, OTHER, SELFPAY ==
--- NOTE | ~2022-12-11 | XR_ITS ---
EXAMINATION: XR FOOT, RIGHT CLINICAL INFORMATION: Gout. COMPARISON: None available. TECHNIQUE: AP, lateral, and oblique views of the right foot. FINDINGS: Severe first metatarsophalangeal degenerative joint changes are seen with severe joint space narrowing, periarticular sclerosis and marginal osteophyte formation. Severe degenerative changes are also seen in the interphalangeal joints of the third and fourth digits. There is no acute fracture or dislocation. The tarsal bones are normally aligned. Moderate dorsal soft tissue swelling is seen. Moderate to severe atherosclerosis is noted. XR/XR foot RT min 3V IMPRESSION: 1. Degenerative joint changes detailed above suggestive of osteoarthritis. No overt evidence for active gout. 2. Moderate dorsal soft tissue swelling. No overt acute fracture. 3. Moderate to severe atherosclerosis.
== END 2022-12-11 14:48 | disposition home or self-care (01) ==
LOC: HO.HMGCX 14:47
PROVIDERS: PCP Nurse Practitioner Family; Visit Provider Internal Medicine
DX: M10.9 Gout, unspecified (principal)
CPT/HCPCS: 73630

== ENCOUNTER 2022-12-31 09:02 | Outpatient (REF) | payer MEDICARE, OTHER, SELFPAY ==
[2022-12-31 11:19] LABS: MANUAL DIFF FLAG NO
[2022-12-31 11:39] LABS: Appearance Urine Clear; Color Urine Yellow; Glucose Urine UA Negative (Negative); Leukocyte Esterase Urine Negative (Negative); Nitrite Urine Negative (Negative); Specific Gravity - Urine 1.015 (1.005-1.025); UMIC TRIGGER UACC YES; Urine Blood Negative (Negative); Urine Ketones Negative (Negative); Urine Protein 30 (1+) mg/dL (Neg-Trace)
[2022-12-31 11:43] LABS: Bacteria Urine None Seen (None Seen); Hyaline Casts Urine 0-2 /LPF (0-2); RBC Urine 0-2 /HPF (0-2); Squamous Epithelial Cell Urine 0-2 /HPF (0-2); WBC Urine 0-5 /HPF (0-5)
[2022-12-31 12:09] LABS: Alanine Aminotransferase 16 U/L (0-40); Albumin Level 4.2 g/dL (3.5-5.0); Alkaline Phosphatase 72 U/L (39-117); Anion Gap 13 (12-20); Aspartate Amino Transferase 20 U/L (5-37); Bilirubin Total 0.8 mg/dL (0.0-1.0); Blood Urea Nitrogen 48 mg/dL (9-16); Calcium 9.9 mg/dL (8.4-10.2); Carbon Dioxide 23 mmol/L (22-29); Chloride 110 mmol/L (96-108); Cholesterol 120 mg/dL (<200); Estimated Glomerular Filt Rate 51; Glucose Fasting 116 mg/dL (60-99); HDL Cholesterol 53 mg/dL (>40); LDL Cholesterol Calculated 57 mg/dL (<100); Potassium 4.9 mmol/L (3.3-5.1); Sodium 141 mmol/L (135-145); Total Protein 7.8 g/dL (6.5-8.0); Triglycerides 51 mg/dL (<150)
[2022-12-31 12:24] LABS: TSH reflex Free T4 1.19 uIU/mL (0.32-4.0)
[2022-12-31 12:58] LABS: Basophils Percent Auto 0.5 % (0-2); Eosinophils Absolute Auto 0.2 X10*3/uL (0.0-0.4); Eosinophils Percent Auto 2.6 % (0-4); Hematocrit 38.8 % (42.0-52.0); Hemoglobin 12.6 g/dl (14.0-18.0); Imm Gran Abs Auto 0.02 X10*3/uL (0.00-0.03); Imm Gran Pct Auto 0.2 % (0.0-0.4); Lymphocytes Absolute Auto 1.7 X10*3/uL (1.2-4.9); Lymphocytes Percent Auto 19.5 % (20-40); Mean Corpuscular HGB Conc 32.5 g/dl (31.0-36.0); Mean Corpuscular Hemoglobin 33.2 pg (27.0-33.0); Mean Corpuscular Volume 102.1 fL (80.0-98.0); Mean Platelet Volume 10.3 fL (9.4-12.4); Monocytes Absolute Auto 1.1 X10*3/uL (0.1-1.2); Monocytes Percent Auto 12.6 % (2-11); Neutrophils Absolute Auto 5.7 x10*3/uL (2.0-8.3); Neutrophils Percent Auto 64.6 % (45-73); Platelet Count 206 X10*3/uL (160-400); Red Cell Distribution Width 12.9 % (11.0-16.0); White Blood Count 8.8 X10*3/uL (4.8-10.8)
== END 2022-12-31 09:03 | disposition home or self-care (01) ==
LOC: HO.HMGCLDS 09:02
PROVIDERS: PCP Nurse Practitioner Family; Visit Provider Nurse Practitioner Family
DX: E11.9 Type 2 diabetes mellitus without complications (principal)
CPT/HCPCS: 36415; 80053; 80061; 81001; 84443; 85025

== ENCOUNTER 2023-01-07 11:16 | Outpatient (AMB) | payer MEDICARE, OTHER, SELFPAY ==
[2023-01-07 11:28] VITALS: BP 134/68; PULSE 70; O2SAT 97; BMI 26.0
--- NOTE | 2023-01-07 11:28 | AM.OFFVISMDC ---
Intake Vital Signs 01/07/23 11:28 Height 5 ft 10 in Weight 181 lb 2 oz BMI 26.0 BP 134/68 Blood Pressure Location Rt brachial Position Sitting Pulse 70 Pulse Source Pulse Oximeter Pulse Oximetry (%) 97 Oxygen Delivery Method Room Air Intake Visit Reasons: SWV G0439 Allergies levofloxacin [From LEVAQUIN] Allergy (Intermediate, Verified 01/07/23 12:21) INSOMNIA indomethacin [From Indocin] Allergy (Mild, Verified 01/07/23 12:21) SEVERE HEADACHE ketorolac [From Toradol] Allergy (Mild, Verified 01/07/23 12:21) HALLUCINATION, hallucinations Medication List - Last Reconciled 01/07/23 by JAIR Mercer aspirin 81 mg PO DAILY atorvastatin 40 mg PO DAILY blood sugar diagnostic tid folic acid 0.4 mg PO DAILY garlic PO DAILY hydrochlorothiazide 25 mg PO DAILY lisinopril 20 mg PO DAILY 90 days [marijuana chewables PO] metoprolol succinate ER 200 mg PO DAILY multivitamin (Daily Multi-Vitamin tablet) 1 tab PO DAILY omega-3 fatty acids (Fish Oil Concentrate) 1,000 mg PO DAILY tamsulosin (Flomax) 0.8 mg (2 x 0.4 mg) PO DAILY 90 days HPI SWV G0439 HPI Details Pt is here for an SWV. Denies fever, chills, and dizziness. [place] of care not filled out, pt refused, you already have that information. PPP will be scanned in chart and copy will be given to pt. refuses renal consult (microalbuminuria). [facility] Medical History Arthritis Heart attack Surgical History History of rectal fissure S/P CABG x 4 Family History Father CAD (coronary artery disease) Unknown family medical history Mother Unknown family medical history Son No problems noted. Son No problems noted. Daughter No problems noted. Social History Housing: House Alcohol intake: former Patient Tobacco Use Status: Former Tobacco user Quit Date: 1985 e-Cigarette/Vaping Use: Never Used Current occupational status: retired Cognitive needs: No Hearing needs: No Vision needs: No Questionnaire Medicare Wellness Checkup What is your age?: 78 or older What gender do you identify with?: male During the past 4 weeks, how much have you been bothered by emotional problems such as feeling anxious, depressed, irritable, sad or downhearted, and blue?: not at all During the past 4 weeks, has your physical & emotional health limited your social activities with family, friends, neighbors, or groups?: slightly During the past 4 weeks, how much bodily pain have you generally had?: mild pain During the past 4 weeks, was someone available to help you if you needed & wanted help?: yes, as much as I wanted During the past 4 weeks, what was the hardest physical activity you could do for at least 2 minutes?: light Can you get to places out of walking distance without help? (For eg., can you travel alone on buses, taxis or drive your car?): Yes Can you go shopping for groceries or clothes without someone's help?: Yes Can you prepare your own meals?: Yes Can you do your housework without help?: Yes Because of any health problems, do you need the help of another person with your personal care needs such as eating, bathing, dressing or getting around the house?: No Can you handle your own money without help?: Yes During the past 4 weeks, how would you rate your health in general?: good During the past 4 weeks how have things been going for you?: pretty well Are you having difficulties driving your car?: no Do you always fasten your seat belt when you are in a car?: yes, usually During past 4 weeks, have you been bothered by the following: never: Falling or dizzy when standing up, Sexual problems?, Trouble eating well?, Problems using the telephone? and Tiredness or fatigue? and seldom: Teeth or denture problems? Have you fallen 2 or more times in the past year?: No Are you afraid of falling?: No Are you a smoker?: no During the past 4 weeks, how many drinks of wine, beer, or other alcoholic beverages did you have?: 2-5 drinks per week Do you exercise for about 20 minutes 3 or more times a week?: yes, some of the time Have you been given information to help with the following?: yes: Hazards in your house that might hurt you? and no: Keeping track of your medications? How often do you have trouble taking medicines the way you have been told to take them?: I always take medicine as prescribed How confident are you that you can control & manage most of your health problems?: very confident What is your race?: White Mini Mental State Exam (MMSE) Orientation What is the (year) (season) (date) (day) (month)?: year (2022) Where are we (state) (county) (town or city) (hospital) (floor)?: state (ms) Registration Name of 3 unrelated objects clearly and slowly, then ask patient to repeat all 3 of them. (1st repeat determines score. Make sure they can repeat all three): object 1, object 2 and object 3 Attention & Calculation (CHOOSE ONE) Spell WORLD backwards (DLROW): 5 letters Recall Ask patient to repeat the 3 items from question #3.: object 1, object 2 and object 3 Language Show patient a wristwatch & ask what it is. Repeat for pencil.: watch and pencil Ask the patient to repeat the phrase 'No ifs, ands, or buts' after you.: correct Ask the patient to 'take a piece of paper with their right hand' 'fold paper in half' 'place paper on floor': take paper in right hand, fold paper in half and place paper on floor Print the sentence 'CLOSE YOUR EYES' on a piece. If patient actually closes eyes then score.: followed written direction Give patient a blank piece of paper & ask to write a sentence. Score if it contains a noun & verb.: sentence contains subject and verb Ask patient to copy figure of intersecting pentagons exactly. Score if all 10 angles & 2 intersects are included.: all 10 angles present & 2 are intersected Score Score: 22 Activity of Daily Living Bathing - sponge bath, tub bath or shower: receives no assistance (gets in/out by self, if usual bathing means Dressing - getting clothes from closets & drawers, including inner/outer garments & fasteners.: gets clothes & gets completely dressed without help Toileting - going to the 'toilet room' for urine/bowel elimination & cleaning self/arranging clothes: goes to toilet room, cleans self, arranges clothes without help Transfer: moves in & out of bed and chair without help (may use support object) Continence: controls urination/bowel movements completely by self Feeding: feeds self without help Total Score: 0 Information obtained from: patient Using telephone: independent Traveling: independent Shopping: independent Preparing meals: independent Housework: independent Taking medicine: independent Managing money: independent PHQ-9 Over the last 2 weeks, how often have you been bothered by any of the following problems? 1. Little interest or pleasure in doing things: not at all 2. Feeling down, depressed, or hopeless: not at all 3. Trouble falling or staying asleep, or sleeping too much: not at all 4. Feeling tired or having little energy: not at all 5. Poor appetite or overeating: not at all 6. Feeling bad about yourself - or that you are a failure or have let yourself or your family down: not at all 7. Trouble concentrating on things, such as reading the newspaper or watching television: not at all 8. Moving or speaking so slowly that other people could have noticed. Or the opposite - being so fidgety or restless that you have been moving around a lot more than usual: not at all 9. Thoughts that you would be better off or of hurting yourself in some way: not at all Total score: 0 Source: Developed by Drs. Miguel Holguin, Melly Kelly, Bereket Cuevas and colleagues, with an educational moises from [employer]. Review of Systems Const Reports as per HPI Physical Exam Vital Signs: Last Vital Signs Pulse 70 01/07/23 11:28 BP 134/68 01/07/23 11:28 Pulse Ox 97 01/07/23 11:28 Oxygen Delivery Method Room Air 01/07/23 11:28 BMI result Body Mass Index 26.0 Const General: cooperative Orientation/consciousness: patient oriented x3 Neuro Other: - romberg, can tandem walk, can walk and turn, can rise from sitting to standing, passed whisper test General: patient oriented x3 Psych Appearance: grossly normal Mental Status: mental status grossly normal Speech and movement: Normal speech and movement present Affect: normal affect Attitude: cooperative Thought process: Normal thought process present Thought content: Normal thought content present Insight: Good insight present (Psych) Judgement: Good judgement present (Psych) Assessment & Plan Assessment & Plan (1) Encounter for annual wellness visit (AWV) in Medicare patient: Code(s): Z00.00 - Encounter for general adult medical examination without abnormal findings Plan The patient agreed to the use of a ophthalmic medical technician for this encounter. Scribed for KRYSTAL Smyth-CARLOS by Brooklyn Urbina ophthalmic medical technician, on 01/07/2023 at 11:55 EST. Quality Reporting (2019) Depression/Bipolar (159/160/161/177) PHQ-9: Total score: 0 Coding Level of Care Code Medicare Subsequent (G0439) Diagnoses Encounter for annual wellness visit (AWV) in Medicare patient Z00.00 CPT Codes Advance Care Planning - Time spent: 16-45 minutes ([id number]) Advance Care Planning Forms completed: Health Care Proxy (pt will fill out), MOLST (filled out, in scan pile) and Living will (already filled put according to pt) Time spent: 16-45 minutes
== END 2023-01-07 12:08 | disposition home or self-care (01) ==
PROVIDERS: PCP Nurse Practitioner Family; Visit Provider Nurse Practitioner Family
DX: Z00.00 Encounter for general adult medical examination without abnormal findings (principal)
CPT/HCPCS: G0439

== ENCOUNTER 2023-01-21 12:29 | Outpatient (REF) | payer MEDICARE, OTHER, SELFPAY ==
[2023-01-21 14:36] LABS: Ferritin 295 ng/mL (20-250)
[2023-01-21 14:44] LABS: Folate 19.9 ng/mL (> or = 4.0); Vitamin B12 511 pg/mL (200-900)
[2023-01-21 14:47] LABS: Iron 113 mcg/dL (45-160); Percent Iron Saturation 50 % (15-50); Total Iron Binding Capacity 224 mcg/dL (228-428); Unsaturated Iron Binding 111 ug/dL
[2023-01-21 16:01] LABS: Appearance Urine Clear; Color Urine Yellow; Glucose Urine UA Negative (Negative); Leukocyte Esterase Urine Negative (Negative); Nitrite Urine Negative (Negative); UMIC TRIGGER UACC YES; Urine Blood Negative (Negative); Urine Ketones Negative (Negative); Urine Protein 30 (1+) mg/dL (Neg-Trace)
[2023-01-21 16:04] LABS: Bacteria Urine None Seen (None Seen); Hyaline Casts Urine 0-2 /LPF (0-2); RBC Urine 0-2 /HPF (0-2); Squamous Epithelial Cell Urine 0-2 /HPF (0-2); WBC Urine 0-5 /HPF (0-5)
== END 2023-01-21 12:30 | disposition home or self-care (01) ==
LOC: HO.HMGCLDS 12:29
PROVIDERS: PCP Nurse Practitioner Family; Visit Provider Nurse Practitioner Family
DX: D64.9 Anemia, unspecified (principal)
CPT/HCPCS: 36415; 81001; 81003; 82607; 82728; 82746; 83540

== ENCOUNTER 2023-02-22 12:59 | Outpatient (REF) | payer MEDICARE, OTHER, SELFPAY ==
[2023-02-22 16:27] LABS: Appearance Urine Clear; Color Urine Dark Yellow; Glucose Urine UA Negative (Negative); Leukocyte Esterase Urine Negative (Negative); Nitrite Urine Negative (Negative); Specific Gravity - Urine 1.025 (1.005-1.025); UMIC TRIGGER UACC YES; Urine Blood Negative (Negative); Urine Ketones Negative (Negative); Urine Protein 100 (2+) mg/dL (Neg-Trace)
[2023-02-22 16:35] LABS: Bacteria Urine None Seen (None Seen); Hyaline Casts Urine 0-2 /LPF (0-2); RBC Urine 0-2 /HPF (0-2); Squamous Epithelial Cell Urine 0-2 /HPF (0-2); WBC Urine 0-5 /HPF (0-5)
== END 2023-02-22 13:00 | disposition home or self-care (01) ==
LOC: HO.HMGCLDS 12:59
PROVIDERS: PCP Nurse Practitioner Family; Visit Provider Internal Medicine Endocrinology, Diabetes & Metabolism
DX: E78.5 Hyperlipidemia, unspecified (principal)
CPT/HCPCS: 81001

== ENCOUNTER 2023-02-28 14:54 | Outpatient (AMB) | payer MEDICARE, OTHER, SELFPAY ==
[2023-02-28 15:24] VITALS: BP 130/60; PULSE 69; O2SAT 96; BMI 26.4
--- NOTE | 2023-02-28 15:24 | HO.NEPHOV_ITS ---
HPI HPI Comments History of Present Illness Details Bryan 82-year-old man with a history of longstanding hypertension, diet- controlled type 2 diabetes mellitus, atrial fibrillation who was referred for chronic kidney disease. Serum creatinine was I 0.3 mg/dL. EGFR is about 50 mL/minute. In 2021 creatinine was 1.1 mg/dL. He has a history of gout. He has not had gout in the last several years. He tells me that he gets an attack many drinks beer and he has not consumed the beer in a long time. He is being followed by Dr. Goncalves from [facility] Medical History Arthritis Heart attack Surgical History History of rectal fissure S/P CABG x 4 Family History Father CAD (coronary artery disease) Unknown family medical history Mother Unknown family medical history Son No problems noted. Son No problems noted. Daughter No problems noted. Social History (Updated 02/28/23 @ 15:57 by Markel Del Cid MD) Household Members Other:: Lives with his grandson and his Housing: House Alcohol intake: former Patient Tobacco Use Status: Former Tobacco user Quit Date: 1985 e-Cigarette/Vaping Use: Never Used Current occupational status: retired Cognitive needs: No Hearing needs: No Vision needs: No Social History Smoking: None Vital Signs 02/28/23 15:24 Height 5 ft 10 in Weight 184 lb BMI 26.4 BP 130/60 Blood Pressure Location Lt brachial Position Sitting Pulse 69 Pulse Source Pulse Oximeter Pulse Oximetry (%) 96 Oxygen Delivery Method Room Air Physical Exam Vital Signs: Last Vital Signs Pulse 69 02/28/23 15:24 BP 130/60 02/28/23 15:24 Pulse Ox 96 02/28/23 15:24 Oxygen Delivery Method Room Air 02/28/23 15:24 BMI result Body Mass Index 26.4 Const General: comfortable Nutritional Appearance: well nourished Orientation/consciousness: patient oriented x3 HEENT Head: No normal to inspection Mouth: moist mucous membranes Neck Neck: Yes supple and Yes no JVD Resp Auscultation: clear to auscultation bilaterally, no rales and rub present Cardio Jugular venous distension: no JVD Palpation: no palpable S3 and no palpable S4 Heart sounds: no rubs GI Palpation (GI): Soft to palpation and nontender Percussion: No Fluid wave present General: Yes no CVA tenderness Back/Spine/Pelvis Back: no CVA tenderness Skin General skin exam: no rashes or lesions noted Neuro General: patient oriented x3 Extrem General: Yes no pedal edema and No clubbing Results Reviewed Results Reviewed: As of December 2022, hemoglobin 12.6 platelets 206 sodium 141 potassium 4.9 BUN 48 creatinine 1.33 EGFR Urinalysis showed specific gravity 1.0252+ protein by dipstick no blood rbc's wbc's by dipstick Urine protein creatinine ratio 0.48 Assessment & Plan Assessment & Plan (1) Proteinuria: Code(s): R80.9 - Proteinuria, unspecified Plan: Most likely due to hypertensive kidney disease. Urine sediments are bland therefore glomerulonephritis or interstitial disease seems unlikely. Baseline creatinine was 1.1 back in 2021 and current creatinine is 1.3. This may be due to natural progression versus age-related nephron loss. Other possibility include hypoperfusion from volume depletion. Next item obstruction is also a possibility. He had ultrasound last year which was unremarkable. The renal function does not improve then I would certainly obtain a repeat renal ultrasonogram. In the meantime we will continue with monitor urine protein excretion. Continue with Cristóbal inhibitors for renal protection. (2) CKD (chronic kidney disease) stage 3, GFR 30-59 ml/min: Code(s): N18.30 - Chronic kidney disease, stage 3 unspecified Plan: Stage III CKD. As discussed above. Continue to avoid NSAIDs. If the creatinine increases further I would decrease hydrochlorothiazide. (3) HTN (hypertension): Code(s): I10 - Essential (primary) hypertension Plan Blood pressure is well controlled. Avoid hypotension In greatest and low-sodium diet. No changes were made to his antihypertensive regimen. Orders: Orders Electrolytes Today N18.30 - Chronic kidney disease, stage 3 unspecified Blood Urea Nitrogen Today N18.30 - Chronic kidney disease, stage 3 unspecified UA and rflx microscopic Today N18.30 - Chronic kidney disease, stage 3 unspecified Complete Blood Count Auto Diff Today N18.30 - Chronic kidney disease, stage 3 unspecified Creatinine Today N18.30 - Chronic kidney disease, stage 3 unspecified Calcium Today N18.30 - Chronic kidney disease, stage 3 unspecified Creatinine Urine Today N18.30 - Chronic kidney disease, stage 3 unspecified Total Protein Urine Random Today N18.30 - Chronic kidney disease, stage 3 unspecified Coding Level of Care Code New Pt Level 4 (38466) Diagnoses Proteinuria R80.9 CKD (chronic kidney disease) stage 3, GFR 30-59 ml/min N18.30 HTN (hypertension) I10
== END 2023-02-28 15:45 | disposition home or self-care (01) ==
PROVIDERS: PCP Nurse Practitioner Family; Visit Provider Internal Medicine Hypertension Specialist
DX: R80.9 Proteinuria, unspecified (principal); I12.9 Hypertensive chronic kidney disease with stage 1 through stage 4 chronic kidney disease, or unspecified chronic kidney disease; N18.30 Chronic kidney disease, stage 3 unspecified
CPT/HCPCS: 99204

== ENCOUNTER → 2023-02-28 14:54 | Outpatient (BNVA) | payer MEDICARE, OTHER, SELFPAY | PROVIDERS: PCP Nurse Practitioner Family; Visit Provider Internal Medicine Hypertension Specialist | DX: I12.9 Hypertensive chronic kidney disease with stage 1 through stage 4 chronic kidney disease, or unspecified chronic kidney disease (principal); N18.30 Chronic kidney disease, stage 3 unspecified; R80.9 Proteinuria, unspecified | CPT/HCPCS: 99202 ==

== ENCOUNTER 2023-03-04 08:37 | Outpatient (REF) | payer MEDICARE, OTHER, SELFPAY ==
[2023-03-04 11:13] LABS: MANUAL DIFF FLAG NO
[2023-03-04 11:27] LABS: Appearance Urine Clear; Color Urine Yellow; Glucose Urine UA Negative (Negative); Leukocyte Esterase Urine Negative (Negative); Nitrite Urine Negative (Negative); PH 5.5 (5.0-9.0); Specific Gravity - Urine 1.015 (1.005-1.025); UMIC TRIGGER UA YES; Urine Blood Negative (Negative); Urine Ketones Negative (Negative); Urine Protein 30 (1+) mg/dL (Neg-Trace)
[2023-03-04 11:34] LABS: Bacteria Urine None Seen (None Seen); Basophils Percent Auto 0.3 % (0-2); Eosinophils Absolute Auto 0.2 X10*3/uL (0.0-0.4); Eosinophils Percent Auto 2.4 % (0-4); Hematocrit 39.1 % (42.0-52.0); Hemoglobin 12.7 g/dl (14.0-18.0); Hyaline Casts Urine 0-2 /LPF (0-2); Imm Gran Abs Auto 0.02 X10*3/uL (0.00-0.03); Imm Gran Pct Auto 0.3 % (0.0-0.4); Lymphocytes Absolute Auto 1.6 X10*3/uL (1.2-4.9); Lymphocytes Percent Auto 22.9 % (20-40); Mean Corpuscular HGB Conc 32.5 g/dl (31.0-36.0); Mean Corpuscular Hemoglobin 32.9 pg (27.0-33.0); Mean Corpuscular Volume 101.3 fL (80.0-98.0); Mean Platelet Volume 10.1 fL (9.4-12.4); Monocytes Percent Auto 13.6 % (2-11); Neutrophils Absolute Auto 4.2 x10*3/uL (2.0-8.3); Neutrophils Percent Auto 60.5 % (45-73); Platelet Count 208 X10*3/uL (160-400); Red Blood Count 3.86 X10*6/uL (4.60-5.80); Red Cell Distribution Width 12.8 % (11.0-16.0); Squamous Epithelial Cell Urine 0-2 /HPF (0-2); WBC Urine 0-5 /HPF (0-5)
[2023-03-04 11:49] LABS: Anion Gap 15 (12-20); Blood Urea Nitrogen 33 mg/dL (9-16); Calcium 9.7 mg/dL (8.4-10.2); Carbon Dioxide 25 mmol/L (22-29); Chloride 105 mmol/L (96-108); Estimated Glomerular Filt Rate 57; Potassium 4.5 mmol/L (3.3-5.1); Sodium 140 mmol/L (135-145)
[2023-03-04 12:06] LABS: Creatinine Urine 116.19 mg/dL; Total Protein Urine Random 41 mg/dL (<12)
== END 2023-03-04 08:38 | disposition home or self-care (01) ==
LOC: HO.HMGCLDS 08:37
PROVIDERS: Absent Provider Internal Medicine Hypertension Specialist; PCP Nurse Practitioner Family; Visit Provider Nurse Practitioner Family
DX: N18.30 Chronic kidney disease, stage 3 unspecified (principal)
CPT/HCPCS: 36415; 80051; 81001; 82310; 82565; 82570; 84156; 84520; 85025

== ENCOUNTER 2023-04-24 09:55 | Outpatient (AMB) | payer MEDICARE, OTHER, SELFPAY ==
--- NOTE | 2023-04-24 10:28 | MHC.PC.OV ---
Vital Signs 04/24/23 10:32 Weight 184 lb BP 128/70 Blood Pressure Location Rt brachial Position Sitting Pulse 69 Pulse Source Pulse Oximeter Pulse Oximetry (%) 98 Oxygen Delivery Method Room Air Intake Visit Reasons: 3 month follow up Intake Note: Patient here for diabetes follow up. Allergies levofloxacin [From LEVAQUIN] Allergy (Intermediate, Verified 04/24/23 10:33) INSOMNIA indomethacin [From Indocin] Allergy (Mild, Verified 04/24/23 10:33) SEVERE HEADACHE ketorolac [From Toradol] Allergy (Mild, Verified 04/24/23 10:33) HALLUCINATION, hallucinations Tobacco use date assessed: 07/12/22 Fall risk assessment: No Falls in past year Last assessed Fall Risk: 04/24/23 Dental Screening Dental Screen Date: 04/24/23 Did you have a dental visit in the last 12 months?: No Did you have a dental problem in the last 6 months where you did not have access to dental care?: No Was dental information given to patient?: Patient has dentist HPI 3 month follow up HPI Details Patient is here for follow-up for diabetes. He is currently on a statin and SMITA-inhibitor. Denies any polyuria, polydipsia, neuropathy. Pt reports he will call to make his own eye exam appt. Pt has a transportation engineer. His A1c today was 6.6. #2 left finger/hand pains. obvious arthritis noted, will get an xr. [facility] Medical History (Updated 04/24/23 @ 10:55 by JAIR Mercer) Arthritis Heart attack Surgical History History of rectal fissure S/P CABG x 4 Family History Father CAD (coronary artery disease) Unknown family medical history Mother Unknown family medical history Son No problems noted. Son No problems noted. Daughter No problems noted. Social History Household Members Other:: Lives with his grandson and his Housing: House Alcohol intake: former Patient Tobacco Use Status: Former Tobacco user Quit Date: 1985 e-Cigarette/Vaping Use: Never Used service: Yes Current occupational status: retired Cognitive needs: No Hearing needs: No Vision needs: No Questionnaire PHQ-9 Over the last 2 weeks, how often have you been bothered by any of the following problems? 1. Little interest or pleasure in doing things: not at all 2. Feeling down, depressed, or hopeless: not at all 3. Trouble falling or staying asleep, or sleeping too much: not at all 4. Feeling tired or having little energy: not at all 5. Poor appetite or overeating: not at all 6. Feeling bad about yourself - or that you are a failure or have let yourself or your family down: not at all 7. Trouble concentrating on things, such as reading the newspaper or watching television: not at all 8. Moving or speaking so slowly that other people could have noticed. Or the opposite - being so fidgety or restless that you have been moving around a lot more than usual: not at all 9. Thoughts that you would be better off or of hurting yourself in some way: not at all Total score: 0 Depression Screening Interpretation: Negative Depression Screening Done: Yes 88089 - PHQ-9 Billing: Yes Source: Developed by Drs. Miguel Holguin, Melly Kelly, Bereket Cuevas and colleagues, with an educational moises from [email or web address]. Thrive Questionnaire Date Thrive assessed: 04/24/23 I am a: Patient What is your living situation today?: I have a steady place to live Within the past 12 months, did the food you bought not last and you didn't have the money to get more?: Often true Do you have trouble paying for medicines?: No Do you have trouble getting transportation to medical appointments?: No Do you have trouble paying your heating and electricity bill?: No Do you have trouble taking care of your child, family member or friend?: No Do you have trouble with day-to-day activities such as bathing, preparing meals, shopping, managing finances, etc.?: No Are you currently unemployed and looking for a job?: No Are you interested in more education?: No AUDIT C Alcohol Use Questionnaire (AUDIT-C) 1. How often do you have a drink containing alcohol?: 4 or more times a week 2. How many drinks containing alcohol do you have on a typical day when you are drinking?: 1 or 2 3. How often do you have six or more drinks on one occasion?: Never Total Score: 4 Score Reviewed/Action Taken: Yes GEO-7 AMB Questionnaire GEO-7 Date GEO - 7 assessed: 04/24/23 Feeling nervous, anxious, or on edge: 0 = Not at all Not being able to stop or control worryin = Not at all Worrying too much about different things: 0 = Not at all Trouble relaxin = Not at all Being so restless that it is hard to sit still: 0 = Not at all Becoming easily annoyed or irritable: 0 = Not at all Feeling afraid as if something awful might happen: 0 = Not at all Total GEO-7 score (0-4 normal; 5-9 mild; 10-14 moderate; 15-21 severe): 0 Source: Developed by Drs. Miguel Holguin, Melly Kelly, Bereket Cuevas and colleagues, with an educational moises from [email or web address]. GEO-7 Assessment Billing GEO-7 Assessment Tool: GEO-7 Assessment 35359 Physical exam (Primary Care) Vital Signs: Last Vital Signs Pulse 69 04/24/23 10:32 BP 128/70 04/24/23 10:32 Pulse Ox 98 04/24/23 10:32 Oxygen Delivery Method Room Air 04/24/23 10:32 Tobacco/Smoking Status: Tobacco use Status Tobacco use date assessed 07/12/22 04/24/23 10:28 Patient Tobacco Use Status Former Tobacco user 04/24/23 10:28 e-Cigarette/Vaping Use Never Used 04/24/23 10:28 PHQ-9: PHQ-9 Score PHQ-9: Total score 0 04/24/23 11:09 Depression Screening Interpretation: Negative Thrive Assessment: Date of Thrive Assessment Date Thrive assessed 04/24/23 04/24/23 10:41 Const General: cooperative and healthy appearing Resp Effort & Inspection: normal respiratory effort Auscultation: clear to auscultation bilaterally Cardio Rate: regular rate Rhythm: regular rhythm Heart sounds: S1 normal heart sound present, S2 normal heart sound present and Murmur heart sound present systolic Extrem Other: dry feet bilat, + sensation with use of monofilament (minimal sensation to left big toe). left hand, DIP and PIP joints are swollen, limiting flexion and extension of fingers, disfigurement noted. Psych Mental Status: mental status grossly normal Speech and movement: Normal speech and movement present Affect: normal affect Attitude: cooperative Thought process: Normal thought process present Thought content: Normal thought content present Insight: Good insight present (Psych) Judgement: Good judgement present (Psych) Results AMB Hemoglobin A1c AMB Hemoglobin A1c 6.6 % Last Edit by ALANA Agustin on 04/24/23 11:10 Results Reviewed Results Reviewed: Laboratory Last Values Hgb A1c (Clinic) 6.6 % (4.0-6.0) H 04/24/23 11:09 Assessment and Plan Assessment & Plan (1) Diabetes: Code(s): E11.9 - Type 2 diabetes mellitus without complications Plan: continue current regime (2) Arthritis: Code(s): M19.90 - Unspecified osteoarthritis, unspecified site Orders: Orders UA CC w/rflx Micro + Cult Today E11.9 - Type 2 diabetes mellitus without complications Microalbumin, Random (w Creat) Today E11.9 - Type 2 diabetes mellitus without complications Magnesium Today E11.9 - Type 2 diabetes mellitus without complications Complete Blood Count Auto Diff Today E11.9 - Type 2 diabetes mellitus without complications Comprehensive [place]. Panel Fast Today E11.9 - Type 2 diabetes mellitus without complications TSH reflex Free T4 Today E11.9 - Type 2 diabetes mellitus without complications Lipid Panel Today E11.9 - Type 2 diabetes mellitus without complications XR hand LT 2V Today M19.90 - Unspecified osteoarthritis, unspecified site AMB Hemoglobin A1c Today E11.9 - Type 2 diabetes mellitus without complications Coding Level of Care Code Est Pt Level 3 (51423) Diagnoses Diabetes E11.9 Arthritis M19.90 Additional Codes GEO-7 Assessment Billing - GEO-7 Assessment Tool: GEO-7 Assessment 99022 ([id number])
[2023-04-24 10:32] VITALS: BP 128/70; PULSE 69; O2SAT 98
== END 2023-04-24 11:13 | disposition home or self-care (01) ==
PROVIDERS: PCP Nurse Practitioner Family; Visit Provider Nurse Practitioner Family
DX: E11.9 Type 2 diabetes mellitus without complications (principal); M19.90 Unspecified osteoarthritis, unspecified site
CPT/HCPCS: 83036; 99213

== ENCOUNTER 2023-04-24 11:14 | Outpatient (REF) | payer MEDICARE, OTHER, SELFPAY ==
--- NOTE | ~2023-04-24 | XR_ITS ---
EXAMINATION: XR HAND, LEFT CLINICAL INFORMATION: Unspecified osteoarthritis, unspecified site COMPARISON: None available. TECHNIQUE: PA, lateral, and oblique views of the left hand. FINDINGS: The bones are intact. There is marked degenerative change of the DIP joints of the index, middle and little finger with flexion at the DIP joints of the index and middle finger. There is mild degenerative change at the PIP joints of the fingers. There is severe degenerative change at the first carpometacarpal joint and mild degenerative change of the triscaphe joint. Arterial vascular calcification is seen in the distal forearm with surgical clips seen along the ventral aspect of the distal radius. XR/XR hand LT 2V IMPRESSION: Degenerative changes, as described above, most severe at the first carpometacarpal joint.
== END 2023-04-24 11:15 | disposition home or self-care (01) ==
LOC: HO.HMGCX 11:14
PROVIDERS: PCP Nurse Practitioner Family; Visit Provider Nurse Practitioner Family
DX: M19.90 Unspecified osteoarthritis, unspecified site (principal); E11.9 Type 2 diabetes mellitus without complications
CPT/HCPCS: 36415; 73120; 80053; 80061; 81001; 82043; 82570; 83735; 84443; 85025

== ENCOUNTER 2023-04-27 09:53 | Outpatient (REF) | payer MEDICARE, OTHER, SELFPAY | END 2023-04-27 09:54 | disposition home or self-care (01) | LOC: HO.HMGCLDS 09:53 | PROVIDERS: PCP Nurse Practitioner Family; Visit Provider Nurse Practitioner Family | DX: D64.9 Anemia, unspecified (principal); E11.9 Type 2 diabetes mellitus without complications | CPT/HCPCS: 36415; 81001; 82607; 82746 ==

== ENCOUNTER 2023-05-27 13:47 | Outpatient (AMB) | payer MEDICARE, OTHER, SELFPAY ==
--- NOTE | 2023-05-27 13:58 | HO.NEPHOV_ITS ---
HPI HPI Comments History of Present Illness Details Bryan 82-year-old man with a history of longstanding hypertension, diet- controlled type 2 diabetes mellitus, atrial fibrillation who was referred for chronic kidney disease. Serum creatinine was I 0.3 mg/dL. EGFR is about 50 mL/minute. In 2021 creatinine was 1.1 mg/dL. He has a history of gout. He has not had gout in the last several years. He tells me that he gets an attack many drinks beer and he has not consumed the beer in a long time. He is being followed by Dr. Goncalves from [facility]ocrin[facility] Medical History (Updated 05/15/23 @ 16:36 by Pradeep Damian, [facility]) Arthritis Heart attack Surgical History History of rectal fissure S/P CABG x 4 Family History Father CAD (coronary artery disease) Unknown family medical history Mother Unknown family medical history Son No problems noted. Son No problems noted. Daughter No problems noted. Social History Household Members Other:: Lives with his grandson and his Housing: House Alcohol intake: former Patient Tobacco Use Status: Former Tobacco user Quit Date: 1985 e-Cigarette/Vaping Use: Never Used service: Yes Current occupational status: retired Cognitive needs: No Hearing needs: No Vision needs: No Vital Signs 05/27/23 13:59 Height 5 ft 10 in Weight 190 lb 6 oz BMI 27.3 BP 140/60 H Blood Pressure Location Lt brachial Position Sitting Pulse 37 L Pulse Source Pulse Oximeter Pulse Oximetry (%) 94 Oxygen Delivery Method Room Air Physical Exam Vital Signs: Last Vital Signs Pulse 37 L 05/27/23 13:59 BP 140/60 H 05/27/23 13:59 Pulse Ox 94 05/27/23 13:59 Oxygen Delivery Method Room Air 05/27/23 13:59 BMI result Body Mass Index 27.3 Const General: comfortable Nutritional Appearance: well nourished Orientation/consciousness: patient oriented x3 HEENT Head: No normal to inspection Mouth: moist mucous membranes Neck Neck: Yes supple and Yes no JVD Resp Auscultation: clear to auscultation bilaterally, no rales and rub present Cardio Jugular venous distension: no JVD Palpation: no palpable S3 and no palpable S4 Heart sounds: no rubs GI Palpation (GI): Soft to palpation and nontender Percussion: No Fluid wave present General: Yes no CVA tenderness Back/Spine/Pelvis Back: no CVA tenderness Skin General skin exam: no rashes or lesions noted Neuro General: patient oriented x3 Extrem General: Yes no pedal edema and No clubbing Assessment & Plan Assessment & Plan (1) Proteinuria: Code(s): R80.9 - Proteinuria, unspecified Plan: Most likely due to underlying diabetic kidney disease. Continue with Cristóbal inhibitor for renal protection. (2) CKD (chronic kidney disease) stage 3, GFR 30-59 ml/min: Code(s): N18.30 - Chronic kidney disease, stage 3 unspecified Plan: Stage III CKD. Most likely due to hypertensive kidney disease. Urine sediments are bland therefore glomerulonephritis or interstitial disease seems unlikely. Baseline creatinine was 1.1 back in 2021 and current creatinine is 1.3. This may be due to natural progression versus age-related nephron loss. Other possibility include hypoperfusion from volume depletion. No obstruction based on recent imaging If the renal function deteriorates I would certainly obtain a repeat renal ultrasonogram. In the meantime we will continue with monitor urine protein excretion. Continue with Cristóbal inhibitors for renal protection. He would benefit from SGLT2 inhibitor Continue to avoid NSAIDs. If the creatinine increases further I would decrease hydrochlorothiazide. (3) HTN (hypertension): Code(s): I10 - Essential (primary) hypertension Plan Blood pressure is well controlled. Avoid hypotension In greatest and low-sodium diet. No changes were made to his antihypertensive regimen. Orders: Orders Basic Metabolic Panel 4 Months I10 - Essential (primary) hypertension, M19.90 - Unspecified osteoarthritis, unspecified site Complete Blood Count no Diff 4 Months I10 - Essential (primary) hypertension, M19.90 - Unspecified osteoarthritis, unspecified site Uric Acid 4 Months I10 - Essential (primary) hypertension, M19.90 - Unspecified osteoarthritis, unspecified site Coding Level of Care Code Est Pt Level 4 (53105) Diagnoses Proteinuria R80.9 CKD (chronic kidney disease) stage 3, GFR 30-59 ml/min N18.30 HTN (hypertension) I10 Results Reviewed Nephrology Results: Hgb 12.6 g/dl (14.0-18.0) L 04/24/23 WBC 8.1 X10*3/uL (4.8-10.8) 04/24/23 Plt Count 221 X10*3/uL (160-400) 04/24/23 Sodium 140 mmol/L (135-145) 04/24/23 Potassium 4.9 mmol/L (3.3-5.1) 04/24/23 Chloride 109 mmol/L (96-108) H 04/24/23 Carbon Dioxide 23 mmol/L (22-29) 04/24/23 BUN 31 mg/dL (9-16) H 04/24/23 Creatinine 1.29 mg/dL (0.5-1.4) 04/24/23 Calcium 9.5 mg/dL (8.4-10.2) 04/24/23 Urine Protein 100 (2+) mg/dL (Neg-Trace) H 04/27/23 Urine Creatinine 181.85 mg/dL 04/24/23
[2023-05-27 13:59] VITALS: BP 140/60; PULSE 37; O2SAT 94; BMI 27.3
== END 2023-05-27 14:14 | disposition home or self-care (01) ==
PROVIDERS: PCP Nurse Practitioner Family; Visit Provider Internal Medicine Hypertension Specialist
DX: R80.9 Proteinuria, unspecified (principal); N18.30 Chronic kidney disease, stage 3 unspecified; I10 Essential (primary) hypertension
CPT/HCPCS: 99214

== ENCOUNTER → 2023-05-27 13:47 | Outpatient (BNVA) | payer MEDICARE, OTHER, SELFPAY | PROVIDERS: PCP Nurse Practitioner Family; Visit Provider Internal Medicine Hypertension Specialist | DX: I12.9 Hypertensive chronic kidney disease with stage 1 through stage 4 chronic kidney disease, or unspecified chronic kidney disease (principal); N18.30 Chronic kidney disease, stage 3 unspecified; R80.9 Proteinuria, unspecified | CPT/HCPCS: 99212 ==